=== PATIENT | male | born 1945 | race African-American/Black ===

== ENCOUNTER 2017-06-24 19:31 | Emergency (ER) | payer MEDICARE, MEDICAID ==
[~2017-06-24] VITALS: Ht 170.2 cm; Wt 66.0 kg
[2017-06-24] MEDS ORDERED: TAMSULOSIN HCL 0.4MG SR CAPSULE PO ONE (21:45)
[2017-06-24 22:21] LABS: CLARITY URINE CLEAR (CLEAR); COLOR URINE ORANGE (YELLOW); GLUCOSE URINE NEGATIVE (NEGATIVE); KETONES URINE NEGATIVE (NEGATIVE); LEUKOCYTE ESTERASE URINE NEGATIVE (NEGATIVE); NITRITE URINE NEGATIVE (NEGATIVE); OCCULT BLOOD URINE 3+ (NEGATIVE); PROTEIN URINE NEGATIVE (NEGATIVE); SPECIFIC GRAVITY URINE 1.006 (1.005-1.030); UROBILINOGEN URINE 0.2 E.U./dL (0.2-1.0)
[2017-06-24 23:34] VITALS: BP 133/83
== END 2017-06-24 23:55 | disposition home or self-care (01) ==
LOC: ER 21:13
DX: N40.1 Benign prostatic hyperplasia with lower urinary tract symptoms (principal); R33.8 Other retention of urine; R31.9 Hematuria, unspecified
CPT/HCPCS: 51702; 81001; 87086; 99284; A4315

== ENCOUNTER 2020-11-06 13:47 | Emergency (ER) | payer MEDICARE, MEDICAID ==
[~2020-11-06] VITALS: Ht 170.2 cm; Wt 67.0 kg
[2020-11-06 14:07] VITALS: BP 160/84
[2020-11-06] MEDS ORDERED: TAMS-11 MT (15:11)
[2020-11-06] MEDS ORDERED: CEPH500C2 MT (15:12)
== END 2020-11-06 15:25 | disposition home or self-care (01) ==
LOC: ER 14:14
DX: R33.9 Retention of urine, unspecified (principal); I10 Essential (primary) hypertension; Z79.899 Other long term (current) drug therapy
CPT/HCPCS: 51702; 99283; 99284